=== PATIENT | male | born 1995 | race Caucasian/White ===

== ENCOUNTER 2018-08-11 19:28 | Emergency (ER) | payer BC ==
[~2018-08-11] VITALS: Ht 177.8 cm; Wt 77.1 kg
[2018-08-11] MEDS ORDERED: AMOXICILLIN500 M2 PO (19:48)
== END 2018-08-11 19:51 | disposition home or self-care (01) ==
LOC: ED 19:28
DX: S00.522A Blister (nonthermal) of oral cavity, initial encounter (principal); H66.91 Otitis media, unspecified, right ear; M54.2 Cervicalgia; Z90.49 Acquired absence of other specified parts of digestive tract; X58.XXXA Exposure to other specified factors, initial encounter; Y93.89 Activity, other specified; Y92.89 Other specified places as the place of occurrence of the external cause; Y99.8 Other external cause status

== ENCOUNTER → 2020-09-04 | Outpatient (CLI) | payer BC ==
[~2020-09-04] MED LIST: AMOXICILLIN500 M2 PO
== END | disposition home or self-care (01) ==
LOC: COVID19 13:10
PROVIDERS: ATTEND Internal Medicine
DX: Z20.822 Contact with and (suspected) exposure to COVID-19 (principal)

== ENCOUNTER 2024-12-31 08:05 | Emergency (ER) | payer BC ==
[~2024-12-31] VITALS: Ht 170.1 cm; Wt 86.2 kg
[2024-12-31] MEDS ORDERED: Ketorolac Tromethamine 30 MG/ML VIAL IM ONE (09:35)
[2024-12-31] MEDS ORDERED: predniSONE 20 MG TAB PO ONE (09:35)
[2024-12-31] MEDS ORDERED: PREDNISONE20 M1 PO (09:37)
[2024-12-31] MEDS ORDERED: MELOXICAM15 MG PO (09:37)
== END 2024-12-31 09:46 | disposition home or self-care (01) ==
LOC: ED 08:05
DX: M54.50 Low back pain, unspecified (principal); Z90.49 Acquired absence of other specified parts of digestive tract